=== PATIENT | male | born 1960 | race African-American/Black ===

== ENCOUNTER 2016-11-11 00:46 | Inpatient (IN) | payer MEDICAID ==
[~2016-11-11] VITALS: Ht 180.3 cm; Wt 98.0 kg
[~2016-11-11 00:46] MED LIST: AMLO5TAB2 PO; AMLO5TAB4 PO; ASPI-496 PO; ATOR40TA78 PO; CALC667C PO; CARV-39 PO; CARV3.1212 PO; CARV6.2512 PO; CINA30TA PO; CIPR250T27 PO; DARB60DI SC; DOCU-30 PO; ERGO2000 PO; FAMO-79 PO; FAMO20TA7 PO; FURO-92 PO; FURO80TA3 PO; GABA300C10 PO; HTN MEDS; HYDR-3138 PO; HYDR-3343 PO; HYDR50TA13 PO; LACT1CAP24 PO; LEVO500T33 PO; LISI-170 PO; LOSA50TA6 PO; OXYC5CAP4 PO; OXYC5TAB3 PO; PARI5VIA IVPush; SEVE400T PO; SEVE800T PO; TRAM-28 PO; VANC1VIA3 PO; VANC250C2 PO; [UNRECOGNIZED DRUG - REMARK]
[2016-11-11] MEDS ORDERED: SODIUM CHLORIDE 0.9% 1,000ML IVBOLUS ONE (01:30)
[2016-11-11 02:01] LABS: ASPARTATE AMINO TRANSFERASE 22 U/L (15-37); BLOOD UREA NITROGEN 63 mg/dL (7-18)
[2016-11-11] MEDS ORDERED: FUROSEMIDE 40 MG/4 ML IVPush ONE (04:30)
[2016-11-11] MEDS ORDERED: DEXTROSE 50%, 50ML SYRINGE IVPush ONE ×3 (04:30→13:00)
[2016-11-11] MEDS ORDERED: INSULIN REGULAR 100 UNITS/ML, 3ML VIAL IVPush ONE (04:30)
[2016-11-11] MEDS ORDERED: DEXTROSE 50%, 50ML SYRINGE ONE ×3 (04:45→12:53)
[2016-11-11] MEDS ORDERED: FUROSEMIDE 40 MG/4 ML ONE (04:45)
[2016-11-11] MEDS ORDERED: INSULIN SINGLE DOSE, ER SQ-INSULIN ONE ×2 (04:47→04:48)
[2016-11-11] MEDS ORDERED: hydrALAzine 20 MG/ML, 1ML ONE (06:18)
[2016-11-11] MEDS ORDERED: hydrALAzine 20 MG/ML, 1ML IV ONE (06:30)
[2016-11-11] MEDS ORDERED: MORPHINE SULFATE 4 MG/ML, 1ML ONE (06:51)
[2016-11-11] MEDS ORDERED: MORPHINE SULFATE 4 MG/ML, 1ML IVPush ONE (07:00)
[2016-11-11 08:01] VITALS: BP 143/77
[2016-11-11] MEDS: HYDROcodone/APAP 5/325 TABLET PO PRN (12:15)
[2016-11-11 12:42] VITALS: BP 162/98
[2016-11-11 12:45] VITALS: BP 162/98
[2016-11-11] MEDS ORDERED: PHARMACY INSTRUCTION MC PRN (14:30)
[2016-11-11] MEDS ORDERED: VANCOMYCIN PER PHARMACY MC PRN (14:30)
[2016-11-11] MEDS ORDERED: PHARMACOKINETIC MONITORING MC PRN (15:00)
[2016-11-11] MEDS ORDERED: PHARMACOKINETIC CONSULTATION MC ONE (15:00)
[2016-11-11] MEDS ORDERED: VANCOMYCIN 2,000 MG in SODIUM CHLORIDE 0.9% 500 ML IV ONE (16:00)
[2016-11-11] MEDS ORDERED: CALCIUM ACETATE 667 MG CAPSULE PO SCH (16:00)
[2016-11-11] MEDS: DEXTROSE 50%, 50ML SYRINGE IVPush PRN (16:10)
[2016-11-11] MEDS: VANCOMYCIN 50 MG/ML ORAL SUSP PO SCH ×3 (17:00→22:37)
[2016-11-11] MEDS: SEVELAMER 800MG TABLET PO SCH (17:20)
[2016-11-11] MEDS: LACTOBACILLUS CHEW TABLET PO SCH ×2 (17:20→20:50)
[2016-11-11] MEDS: PIPERACILLIN/TAZO/PMX 3.375GM 50 ML IV SCH ×2 (18:09→20:50)
[2016-11-11] MEDS ORDERED: DIPHENHYDRAMINE 50 MG/ML, 1ML IVPush ONE (18:30)
[2016-11-11 19:24] VITALS: BP 130/77
[2016-11-11] MEDS: DARBEPOETIN 60 MCG/ML SQ SCH (20:51)
[2016-11-12 01:08] VITALS: BP 141/88
[2016-11-12] MEDS: PIPERACILLIN/TAZO/PMX 3.375GM 50 ML IV SCH ×3 (02:46→14:00)
[2016-11-12 05:21] LABS: ASPARTATE AMINO TRANSFERASE 13 U/L (15-37); BLOOD UREA NITROGEN 40 mg/dL (7-18)
[2016-11-12 05:31] LABS: TOTAL IRON BINDING CAPACITY 180 mcg/dL (250-450)
[2016-11-12] MEDS: HYDROcodone/APAP 5/325 TABLET PO PRN ×2 (05:36→22:18)
[2016-11-12] MEDS: VANCOMYCIN 50 MG/ML ORAL SUSP PO SCH ×4 (05:36→20:42)
[2016-11-12 05:59] LABS: DIFF TOTAL CELLS COUNTED 100 CELL DIFF
[2016-11-12 06:02] LABS: VERIFY COUNTS? YES
[2016-11-12 06:03] LABS: ANISOCYTOSIS 1+
[2016-11-12 07:07] VITALS: BP 134/76
[2016-11-12] MEDS: SEVELAMER 800MG TABLET PO SCH ×3 (08:00→18:30)
[2016-11-12] MEDS: DEXTROSE 50%, 50ML SYRINGE IVPush PRN ×2 (08:30→12:05)
[2016-11-12] MEDS: LISINOPRIL 20 MG TABLET PO SCH (08:42)
[2016-11-12] MEDS: GABAPENTIN 300 MG CAPSULE PO SCH (08:42)
[2016-11-12] MEDS: LACTOBACILLUS CHEW TABLET PO SCH ×3 (08:42→20:42)
[2016-11-12] MEDS: CARVEDILOL 25 MG TABLET PO SCH ×2 (08:42→09:00)
[2016-11-12] MEDS: AMLODIPINE 5 MG TABLET PO SCH (08:42)
[2016-11-12 13:48] VITALS: BP 118/68
[2016-11-12] MEDS: CINACALCET 30 MG TABLET PO SCH (14:00)
[2016-11-12 18:20] VITALS: BP 123/75
[2016-11-12] MEDS: PIPERACILLIN/TAZO/PMX 2.25GM 50 ML IVPB SCH (22:18)
[2016-11-13 01:02] VITALS: BP 103/54
[2016-11-13] MEDS: VANCOMYCIN 50 MG/ML ORAL SUSP PO SCH ×4 (06:00→20:20)
[2016-11-13] MEDS: PIPERACILLIN/TAZO/PMX 2.25GM 50 ML IVPB SCH ×2 (06:07→16:00)
[2016-11-13 06:17] LABS: BLOOD UREA NITROGEN 34 mg/dL (7-18)
[2016-11-13 07:00] VITALS: BP 138/77
[2016-11-13] MEDS: SEVELAMER 800MG TABLET PO SCH ×3 (08:00→18:00)
[2016-11-13] MEDS: CINACALCET 30 MG TABLET PO SCH (09:00)
[2016-11-13] MEDS: CARVEDILOL 25 MG TABLET PO SCH (09:00)
[2016-11-13] MEDS: LISINOPRIL 20 MG TABLET PO SCH (09:00)
[2016-11-13] MEDS: GABAPENTIN 300 MG CAPSULE PO SCH (09:00)
[2016-11-13] MEDS: AMLODIPINE 5 MG TABLET PO SCH (09:00)
[2016-11-13] MEDS: LACTOBACILLUS CHEW TABLET PO SCH ×3 (09:00→20:20)
[2016-11-13 12:53] VITALS: BP 153/92
[2016-11-13] MEDS ORDERED: VANCOMYCIN 1,500 MG in SODIUM CHLORIDE 0.9% 250 ML IV ONE (13:00)
[2016-11-13 18:36] VITALS: BP 130/77
[2016-11-13] MEDS: HYDROcodone/APAP 5/325 TABLET PO PRN (23:21)
[2016-11-14] MEDS: PIPERACILLIN/TAZO/PMX 2.25GM 50 ML IVPB SCH ×3 (00:20→12:00)
[2016-11-14 00:59] VITALS: BP 136/81
[2016-11-14] MEDS: VANCOMYCIN 50 MG/ML ORAL SUSP PO SCH ×4 (05:01→21:16)
[2016-11-14 05:40] LABS: BLOOD UREA NITROGEN 46 mg/dL (7-18)
[2016-11-14 07:02] VITALS: BP 134/79
[2016-11-14] MEDS: SEVELAMER 800MG TABLET PO SCH ×3 (08:00→16:33)
[2016-11-14] MEDS: GABAPENTIN 300 MG CAPSULE PO SCH (08:04)
[2016-11-14] MEDS: LACTOBACILLUS CHEW TABLET PO SCH ×3 (08:04→21:16)
[2016-11-14] MEDS: CARVEDILOL 25 MG TABLET PO SCH (12:33)
[2016-11-14] MEDS: AMLODIPINE 5 MG TABLET PO SCH (12:34)
[2016-11-14] MEDS: CINACALCET 30 MG TABLET PO SCH (12:34)
[2016-11-14] MEDS: LISINOPRIL 20 MG TABLET PO SCH (12:34)
[2016-11-14 13:03] VITALS: BP 146/79
[2016-11-14] MEDS ORDERED: PIPERACILLIN/TAZO 0.75 GM in SODIUM CHLORIDE 0.9% 50 ML IV SCH (16:00)
[2016-11-14 20:00] VITALS: BP 111/71
[2016-11-14] MEDS: CHOLESTYRAMINE LIGHT 4GM PACKET PO SCH (21:16)
[2016-11-14] MEDS: HYDROcodone/APAP 5/325 TABLET PO PRN (21:17)
[2016-11-15] MEDS: PIPERACILLIN/TAZO/PMX 2.25GM 50 ML IVPB SCH ×2 (00:09→12:00)
[2016-11-15 02:00] VITALS: BP 119/71
[2016-11-15] MEDS: VANCOMYCIN 50 MG/ML ORAL SUSP PO SCH ×4 (04:12→21:21)
[2016-11-15 06:53] VITALS: BP 130/78
[2016-11-15] MEDS: SEVELAMER 800MG TABLET PO SCH ×3 (08:00→16:26)
[2016-11-15] MEDS: CARVEDILOL 25 MG TABLET PO SCH (09:00)
[2016-11-15] MEDS: CHOLESTYRAMINE LIGHT 4GM PACKET PO SCH ×2 (09:00→21:21)
[2016-11-15] MEDS: GABAPENTIN 300 MG CAPSULE PO SCH (09:00)
[2016-11-15] MEDS: LACTOBACILLUS CHEW TABLET PO SCH ×3 (09:00→21:21)
[2016-11-15] MEDS: AMLODIPINE 5 MG TABLET PO SCH (09:00)
[2016-11-15] MEDS: CINACALCET 30 MG TABLET PO SCH (09:00)
[2016-11-15] MEDS: LISINOPRIL 20 MG TABLET PO SCH (09:00)
[2016-11-15] MEDS ORDERED: FENTANYL PF 250 MCG/5ML ONE (10:02)
[2016-11-15 11:11] LABS: ASPARTATE AMINO TRANSFERASE 12 U/L (15-37); BLOOD UREA NITROGEN 37 mg/dL (7-18)
[2016-11-15] MEDS ORDERED: SUCCINYLCHOLINE 20 MG/ML, 10ML ONE (11:25)
[2016-11-15] MEDS ORDERED: HEPARIN 1,000 UNITS/ML, 30ML ONE (11:27)
[2016-11-15] MEDS ORDERED: THROMBIN 5,000 UNIT VIAL TP ONE (11:27)
[2016-11-15] MEDS ORDERED: PROTAMINE SULFATE 10 MG/ML, 5ML ONE (11:27)
[2016-11-15] MEDS ORDERED: HEPARIN 5,000 UNITS/ML, 1ML ONE (11:27)
[2016-11-15] MEDS ORDERED: BUPIVACAINE/PF 0.5% ONE (11:30)
[2016-11-15] MEDS ORDERED: PROPOFOL 10 MG/ML, 20ML ONE (11:34)
[2016-11-15] MEDS ORDERED: ONDANSETRON 2MG/ML, 2ML ONE (11:34)
[2016-11-15] MEDS ORDERED: ONDANSETRON 2MG/ML, 2ML IVPush PRN (12:00)
[2016-11-15] MEDS ORDERED: hydrALAzine 20 MG/ML, 1ML IV PRN (12:00)
[2016-11-15] MEDS ORDERED: OXYcodone 5 MG/5 ML ORAL.SOL UDC PO PRN (12:00)
[2016-11-15] MEDS ORDERED: LABETALOL 5MG/ML, 20ML IV PRN (12:00)
[2016-11-15] MEDS ORDERED: HYDROmorphone 1 MG/ML, 1ML IV PRN (12:00)
[2016-11-15] MEDS ORDERED: FENTANYL PF 100 MCG/2ML ONE (13:01)
[2016-11-15] MEDS ORDERED: OXYcodone 5 MG/5 ML ORAL.SOL UDC ONE (13:02)
[2016-11-15] MEDS: FENTANYL PF 100 MCG/2ML IV PRN ×2 (13:05→13:30)
[2016-11-15 14:00] VITALS: BP 145/77
[2016-11-15] MEDS: HYDROcodone/APAP 5/325 TABLET PO PRN ×2 (16:26→23:21)
[2016-11-15 20:00] VITALS: BP 122/71
[2016-11-16] MEDS: PIPERACILLIN/TAZO/PMX 2.25GM 50 ML IVPB SCH ×2 (00:21→12:49)
[2016-11-16 02:00] VITALS: BP 144/81
[2016-11-16 06:20] LABS: BLOOD UREA NITROGEN 42 mg/dL (7-18)
[2016-11-16] MEDS: VANCOMYCIN 50 MG/ML ORAL SUSP PO SCH ×4 (06:31→20:28)
[2016-11-16] MEDS: HYDROcodone/APAP 5/325 TABLET PO PRN ×3 (06:32→20:28)
[2016-11-16 07:29] VITALS: BP 138/82
[2016-11-16] MEDS: SEVELAMER 800MG TABLET PO SCH ×3 (08:00→17:07)
[2016-11-16] MEDS: LACTOBACILLUS CHEW TABLET PO SCH ×3 (09:00→20:28)
[2016-11-16] MEDS: CINACALCET 30 MG TABLET PO SCH (09:00)
[2016-11-16] MEDS: CHOLESTYRAMINE LIGHT 4GM PACKET PO SCH ×2 (09:00→20:28)
[2016-11-16] MEDS: AMLODIPINE 5 MG TABLET PO SCH (12:48)
[2016-11-16] MEDS: LISINOPRIL 20 MG TABLET PO SCH (12:48)
[2016-11-16] MEDS: CARVEDILOL 25 MG TABLET PO SCH (12:48)
[2016-11-16] MEDS: GABAPENTIN 300 MG CAPSULE PO SCH (12:49)
[2016-11-16 13:19] VITALS: BP 130/78
[2016-11-16] MEDS: DOXYCYCLINE 100 MG in DEXTROSE 5% 250 ML IV SCH (17:07)
[2016-11-16] MEDS: HEPARIN 5,000 UNITS/ML, 1ML SQ SCH (17:08)
[2016-11-16 20:00] VITALS: BP 92/54
[2016-11-17] MEDS: HEPARIN 5,000 UNITS/ML, 1ML SQ SCH ×3 (00:32→18:25)
[2016-11-17 02:00] VITALS: BP 117/65
[2016-11-17] MEDS: DOXYCYCLINE 100 MG in DEXTROSE 5% 250 ML IV SCH ×2 (02:53→15:55)
[2016-11-17] MEDS: HYDROcodone/APAP 5/325 TABLET PO PRN ×3 (02:54→18:24)
[2016-11-17] MEDS: VANCOMYCIN 50 MG/ML ORAL SUSP PO SCH ×4 (06:15→20:47)
[2016-11-17 06:56] VITALS: BP 116/64
[2016-11-17 08:41] LABS: BLOOD UREA NITROGEN 28 mg/dL (7-18)
[2016-11-17 08:42] LABS: ASPARTATE AMINO TRANSFERASE 12 U/L (15-37)
[2016-11-17] MEDS: CARVEDILOL 25 MG TABLET PO SCH (10:30)
[2016-11-17] MEDS: SEVELAMER 800MG TABLET PO SCH ×3 (10:30→18:24)
[2016-11-17] MEDS: LACTOBACILLUS CHEW TABLET PO SCH ×3 (10:30→20:47)
[2016-11-17] MEDS: AMLODIPINE 5 MG TABLET PO SCH (10:31)
[2016-11-17] MEDS: GABAPENTIN 300 MG CAPSULE PO SCH (10:31)
[2016-11-17] MEDS: CINACALCET 30 MG TABLET PO SCH (10:31)
[2016-11-17] MEDS: LISINOPRIL 20 MG TABLET PO SCH (10:31)
[2016-11-17] MEDS: CHOLESTYRAMINE LIGHT 4GM PACKET PO SCH ×2 (11:00→20:47)
[2016-11-17 14:48] VITALS: BP 99/61
[2016-11-17 18:57] VITALS: BP 105/63
[2016-11-18] MEDS: HEPARIN 5,000 UNITS/ML, 1ML SQ SCH ×4 (00:26→23:35)
[2016-11-18 01:37] VITALS: BP 116/70
[2016-11-18] MEDS: DOXYCYCLINE 100 MG in DEXTROSE 5% 250 ML IV SCH ×2 (03:47→15:59)
[2016-11-18] MEDS: VANCOMYCIN 50 MG/ML ORAL SUSP PO SCH ×4 (06:14→21:19)
[2016-11-18 07:30] VITALS: BP 114/68
[2016-11-18] MEDS: CHOLESTYRAMINE LIGHT 4GM PACKET PO SCH ×2 (09:59→21:19)
[2016-11-18] MEDS: CINACALCET 30 MG TABLET PO SCH (09:59)
[2016-11-18] MEDS: GABAPENTIN 300 MG CAPSULE PO SCH (09:59)
[2016-11-18] MEDS: LISINOPRIL 20 MG TABLET PO SCH (09:59)
[2016-11-18] MEDS: AMLODIPINE 5 MG TABLET PO SCH (09:59)
[2016-11-18] MEDS: LACTOBACILLUS CHEW TABLET PO SCH ×3 (10:00→21:19)
[2016-11-18] MEDS: SEVELAMER 800MG TABLET PO SCH ×3 (10:00→15:59)
[2016-11-18] MEDS: CARVEDILOL 25 MG TABLET PO SCH (10:00)
[2016-11-18] MEDS: HYDROcodone/APAP 5/325 TABLET PO PRN ×3 (10:29→23:33)
[2016-11-18 13:59] VITALS: BP 104/62
[2016-11-18 18:35] VITALS: BP 82/5
[2016-11-18] MEDS: DARBEPOETIN 60 MCG/ML SQ SCH (21:20)
[2016-11-19 01:37] VITALS: BP 100/60
[2016-11-19] MEDS: DOXYCYCLINE 100 MG in DEXTROSE 5% 250 ML IV SCH (03:20)
[2016-11-19 05:30] LABS: BLOOD UREA NITROGEN 62 mg/dL (7-18)
[2016-11-19 05:34] LABS: ASPARTATE AMINO TRANSFERASE 9 U/L (15-37)
[2016-11-19] MEDS: VANCOMYCIN 50 MG/ML ORAL SUSP PO SCH ×3 (06:16→20:16)
[2016-11-19] MEDS: HYDROcodone/APAP 5/325 TABLET PO PRN ×2 (06:16→20:16)
[2016-11-19 06:44] VITALS: BP 108/64
[2016-11-19] MEDS: SEVELAMER 800MG TABLET PO SCH ×3 (08:11→18:16)
[2016-11-19] MEDS: CHOLESTYRAMINE LIGHT 4GM PACKET PO SCH ×2 (08:11→21:45)
[2016-11-19] MEDS: GABAPENTIN 300 MG CAPSULE PO SCH (08:11)
[2016-11-19] MEDS: CINACALCET 30 MG TABLET PO SCH (08:12)
[2016-11-19] MEDS: HEPARIN 5,000 UNITS/ML, 1ML SQ SCH ×3 (08:12→23:34)
[2016-11-19] MEDS: LACTOBACILLUS CHEW TABLET PO SCH ×3 (08:12→20:15)
[2016-11-19] MEDS: CARVEDILOL 25 MG TABLET PO SCH (09:00)
[2016-11-19] MEDS: LISINOPRIL 20 MG TABLET PO SCH (09:00)
[2016-11-19] MEDS: AMLODIPINE 5 MG TABLET PO SCH (09:00)
[2016-11-19 13:22] VITALS: BP 107/61
[2016-11-19 19:55] VITALS: BP 128/78
[2016-11-19] MEDS: DOXYCYCLINE 100MG TABLET PO SCH (20:15)
[2016-11-20 01:21] VITALS: BP 104/57
[2016-11-20] MEDS: HYDROcodone/APAP 5/325 TABLET PO PRN (02:14)
[2016-11-20] MEDS: VANCOMYCIN 50 MG/ML ORAL SUSP PO SCH ×3 (05:33→15:23)
[2016-11-20 06:44] VITALS: BP 107/62
[2016-11-20] MEDS: LACTOBACILLUS CHEW TABLET PO SCH ×2 (09:24→15:23)
[2016-11-20] MEDS: SEVELAMER 800MG TABLET PO SCH ×2 (09:24→12:09)
[2016-11-20] MEDS: HEPARIN 5,000 UNITS/ML, 1ML SQ SCH ×2 (09:24→15:23)
[2016-11-20] MEDS: CARVEDILOL 25 MG TABLET PO SCH (09:24)
[2016-11-20] MEDS: GABAPENTIN 300 MG CAPSULE PO SCH (09:24)
[2016-11-20] MEDS: AMLODIPINE 5 MG TABLET PO SCH (09:25)
[2016-11-20] MEDS: LISINOPRIL 20 MG TABLET PO SCH (09:26)
[2016-11-20] MEDS: CHOLESTYRAMINE LIGHT 4GM PACKET PO SCH (09:26)
[2016-11-20] MEDS: DOXYCYCLINE 100MG TABLET PO SCH (09:26)
[2016-11-20] MEDS: CINACALCET 30 MG TABLET PO SCH (09:26)
[2016-11-20] MEDS ORDERED: DOXY100T PO (10:38)
[2016-11-20] MEDS ORDERED: VANC250C2 PO (10:38)
[2016-11-20 14:12] VITALS: BP 104/68
== END 2016-11-20 16:30 | disposition home or self-care (01) | DRG 622 ==
LOC: ED 01:03 → EDIP 06:16 → 4WST 07:07
PROVIDERS: ADMIT Internal Medicine; ATTEND Internal Medicine
PROC: 05SA0ZZ Reposition Left Brachial Vein, Open Approach (ICD-10-PCS; principal; 2016-11-15 11:00)
PROC: 0HBNXZZ Excision of Left Foot Skin, External Approach (ICD-10-PCS; 2016-11-15 11:00)
PROC: 5A1D60Z (ICD-10-PCS; 2016-11-19)
DX: E87.5 Hyperkalemia (principal); N18.6 End stage renal disease; I13.2 Hypertensive heart and chronic kidney disease with heart failure and with stage 5 chronic kidney disease, or end stage renal disease; I50.42 Chronic combined systolic (congestive) and diastolic (congestive) heart failure; L02.612 Cutaneous abscess of left foot; L03.116 Cellulitis of left lower limb; Z99.2 Dependence on renal dialysis; E11.22 Type 2 diabetes mellitus with diabetic chronic kidney disease; I27.2 Other secondary pulmonary hypertension; E11.649 Type 2 diabetes mellitus with hypoglycemia without coma; E78.5 Hyperlipidemia, unspecified; H54.8 Legal blindness, as defined in USA; Z87.442 Personal history of urinary calculi; N20.0 Calculus of kidney; D63.1 Anemia in chronic kidney disease; G89.4 Chronic pain syndrome; I25.10 Atherosclerotic heart disease of native coronary artery without angina pectoris; Z59.0 Homelessness; Z91.19 Patient's noncompliance with other medical treatment and regimen; E87.1 Hypo-osmolality and hyponatremia
CPT/HCPCS: 36415; 71010; 74176; 76700; 80048; 80053; 80202; 82306; 82728; 82962; 83036; 83540; 83550; 83690; 83735; 83970; 84100; 84145; 84550; 85025; 87040; 87324; 89055; 93005; 93922; 96361; 96374; 96375; 96376; J0881; J1644; J1940; J2405; J2543; J2704; J2720; J3010; J3370; J3490; J7060; J0330; J0360; J1200; J7030; J7040; J7050

== ENCOUNTER 2016-11-23 19:57 | Emergency (ER) | payer MEDICAID ==
[~2016-11-23] VITALS: Ht 180.3 cm; Wt 93.8 kg
[~2016-11-23 19:57] MED LIST changes: +DOXY100T PO
[2016-11-23 21:26] LABS: ASPARTATE AMINO TRANSFERASE 20 U/L (15-37); BLOOD UREA NITROGEN 24 mg/dL (7-18)
[2016-11-23 23:51] VITALS: BP 149/94
== END 2016-11-23 23:53 | disposition home or self-care (01) ==
LOC: ED 22:15
DX: K60.2 Anal fissure, unspecified (principal); I12.0 Hypertensive chronic kidney disease with stage 5 chronic kidney disease or end stage renal disease; E11.22 Type 2 diabetes mellitus with diabetic chronic kidney disease; N18.6 End stage renal disease; K72.90 Hepatic failure, unspecified without coma; I11.0 Hypertensive heart disease with heart failure; Z99.2 Dependence on renal dialysis
CPT/HCPCS: 36415; 74022; 74176; 80053; 85025; 93005

== ENCOUNTER 2017-01-27 00:13 | Inpatient (IN) | payer MEDICAID ==
[~2017-01-27] VITALS: Ht 180.3 cm; Wt 102.5 kg
[2017-01-27 01:52] LABS: BLOOD UREA NITROGEN 107 mg/dL (7-18)
[2017-01-27] MEDS: HEPARIN 5,000 UNITS/ML, 1ML SQ SCH ×3 (04:30→20:35)
[2017-01-27] MEDS ORDERED: ACETAMINOPHEN 325 MG TABLET PO PRN (04:30)
[2017-01-27] MEDS ORDERED: ONDANSETRON 2MG/ML, 2ML IVPush PRN (04:30)
[2017-01-27] MEDS ORDERED: HYDROcodone/APAP 5/325 TABLET PO PRN (04:30)
[2017-01-27] MEDS ORDERED: POLYETHYLENE GLYCOL 17 GM PACKET PO PRN (04:30)
[2017-01-27] MEDS ORDERED: DOCUSATE 100 MG CAPSULE PO PRN (04:30)
[2017-01-27 06:19] VITALS: BP 159/93
[2017-01-27 07:19] VITALS: BP 149/86
[2017-01-27] MEDS: SEVELAMER 2.4 GM POWD.PACK PO SCH ×3 (09:29→18:17)
[2017-01-27] MEDS: CARVEDILOL 25 MG TABLET PO SCH (09:31)
[2017-01-27] MEDS: SENNA/DOCUSATE TABLET PO SCH (09:31)
[2017-01-27] MEDS: GABAPENTIN 300 MG CAPSULE PO SCH (09:31)
[2017-01-27] MEDS: LISINOPRIL 20 MG TABLET PO SCH (09:31)
[2017-01-27] MEDS: AMLODIPINE 5 MG TABLET PO SCH (09:31)
[2017-01-27] MEDS: LACTOBACILLUS CHEW TABLET PO SCH ×3 (09:31→20:36)
[2017-01-27] MEDS: CALCIUM ACETATE 667 MG CAPSULE PO SCH ×3 (09:31→20:36)
[2017-01-27] MEDS: SODIUM CHLORIDE FLUSH 10ML SYR IVF SCH ×2 (09:33→20:36)
[2017-01-27 15:30] VITALS: BP 103/58
[2017-01-27 18:00] VITALS: BP 122/70
[2017-01-27] MEDS: ATORVASTATIN 40 MG TABLET PO SCH (20:36)
[2017-01-28 02:01] VITALS: BP 127/69
[2017-01-28] MEDS: HEPARIN 5,000 UNITS/ML, 1ML SQ SCH ×3 (04:41→21:36)
[2017-01-28 06:24] LABS: BLOOD UREA NITROGEN 65 mg/dL (7-18)
[2017-01-28 07:50] VITALS: BP 112/62
[2017-01-28] MEDS: LISINOPRIL 20 MG TABLET PO SCH (09:00)
[2017-01-28] MEDS ORDERED: CINACALCET 30 MG TABLET PO SCH (09:00)
[2017-01-28] MEDS: GABAPENTIN 300 MG CAPSULE PO SCH (09:00)
[2017-01-28] MEDS: AMLODIPINE 5 MG TABLET PO SCH (09:00)
[2017-01-28] MEDS: CARVEDILOL 25 MG TABLET PO SCH (09:00)
[2017-01-28] MEDS: SENNA/DOCUSATE TABLET PO SCH (09:00)
[2017-01-28] MEDS: SODIUM CHLORIDE FLUSH 10ML SYR IVF SCH ×2 (09:01→21:37)
[2017-01-28] MEDS: CALCIUM ACETATE 667 MG CAPSULE PO SCH ×3 (09:02→21:37)
[2017-01-28] MEDS: LACTOBACILLUS CHEW TABLET PO SCH ×3 (09:02→21:37)
[2017-01-28] MEDS: SEVELAMER 2.4 GM POWD.PACK PO SCH ×3 (09:04→18:25)
[2017-01-28 13:54] VITALS: BP 129/71
[2017-01-28 20:00] VITALS: BP 132/65
[2017-01-28] MEDS: ATORVASTATIN 40 MG TABLET PO SCH (21:37)
[2017-01-29 02:00] VITALS: BP 134/66
[2017-01-29] MEDS: HEPARIN 5,000 UNITS/ML, 1ML SQ SCH ×2 (05:02→12:47)
[2017-01-29 05:29] LABS: BLOOD UREA NITROGEN 50 mg/dL (7-18)
[2017-01-29 07:45] VITALS: BP 127/67
[2017-01-29] MEDS: SEVELAMER 2.4 GM POWD.PACK PO SCH ×2 (08:00→12:42)
[2017-01-29] MEDS: SENNA/DOCUSATE TABLET PO SCH (09:00)
[2017-01-29] MEDS: SODIUM CHLORIDE FLUSH 10ML SYR IVF SCH (09:00)
[2017-01-29] MEDS: CALCIUM ACETATE 667 MG CAPSULE PO SCH (09:00)
[2017-01-29] MEDS: CARVEDILOL 25 MG TABLET PO SCH (09:48)
[2017-01-29] MEDS: GABAPENTIN 300 MG CAPSULE PO SCH (09:49)
[2017-01-29] MEDS: AMLODIPINE 5 MG TABLET PO SCH (09:49)
[2017-01-29] MEDS: LISINOPRIL 20 MG TABLET PO SCH (09:49)
[2017-01-29] MEDS: LACTOBACILLUS CHEW TABLET PO SCH (09:49)
== END 2017-01-29 16:00 | disposition home or self-care (01) | DRG 640 ==
LOC: ED 00:23 → EDIP 03:14 → 4WST 05:39 → DCLOUNGE 01-29 15:18
PROVIDERS: ADMIT Family Medicine; ATTEND Internal Medicine
PROC: 5A1D60Z (ICD-10-PCS; principal; 2017-01-27)
DX: E87.70 Fluid overload, unspecified (principal); N18.6 End stage renal disease; I13.2 Hypertensive heart and chronic kidney disease with heart failure and with stage 5 chronic kidney disease, or end stage renal disease; E11.22 Type 2 diabetes mellitus with diabetic chronic kidney disease; E11.21 Type 2 diabetes mellitus with diabetic nephropathy; I50.9 Heart failure, unspecified; E11.40 Type 2 diabetes mellitus with diabetic neuropathy, unspecified; D63.1 Anemia in chronic kidney disease; G89.4 Chronic pain syndrome; I25.10 Atherosclerotic heart disease of native coronary artery without angina pectoris; S91.309A Unspecified open wound, unspecified foot, initial encounter; I27.2 Other secondary pulmonary hypertension; Z59.0 Homelessness; Z99.2 Dependence on renal dialysis; Z91.19 Patient's noncompliance with other medical treatment and regimen; Z88.6 Allergy status to analgesic agent; Z83.3 Family history of diabetes mellitus; Z82.49 Family history of ischemic heart disease and other diseases of the circulatory system; Z87.19 Personal history of other diseases of the digestive system
CPT/HCPCS: 36415; 71010; 80048; 82040; 82962; 83735; 84100; 85025; 93005; 99285; J1644

== ENCOUNTER 2017-03-20 01:25 | Emergency (ER) | payer MEDICAID ==
[~2017-03-20 01:25] MED LIST changes: -CINA30TA PO; +CINA30TA2 PO; +DOCU-131 PO; -DOCU-30 PO; -HYDR-3138 PO; +HYDR-3237 PO; -LEVO500T33 PO; +LEVO500T47 PO; +OXYC5CAP2 PO; -OXYC5CAP4 PO; -SEVE800T PO; +SEVE800T7 PO; -TRAM-28 PO; +TRAM-47 PO
[2017-03-20] MEDS ORDERED: MORPHINE SULFATE 4 MG/ML, 1ML ONE (02:10)
[2017-03-20] MEDS ORDERED: ONDANSETRON 2MG/ML, 2ML ONE (02:11)
[2017-03-20] MEDS ORDERED: ASPIRIN 81 MG TABLET CHEW ONE (02:11)
[2017-03-20 11:53] LABS: ASPARTATE AMINO TRANSFERASE 7 U/L (15-37); BLOOD UREA NITROGEN 49 mg/dL (7-18); IS PT STATUS REG ER OR PRE ER? YES
[2017-03-20 13:15] LABS: HEMOGLOBIN 10.5 g/dL (13.7-18.0); WHITE BLOOD COUNT 7.5 x10^3/uL (3.4-10)
== END 2017-03-20 13:31 | disposition home or self-care (01) ==
LOC: ED 02:10
DX: R10.30 Lower abdominal pain, unspecified (principal); R19.7 Diarrhea, unspecified; R07.2 Precordial pain; E11.22 Type 2 diabetes mellitus with diabetic chronic kidney disease; I12.0 Hypertensive chronic kidney disease with stage 5 chronic kidney disease or end stage renal disease; N18.6 End stage renal disease; Z99.2 Dependence on renal dialysis
CPT/HCPCS: 36415; 71010; 80053; 83690; 84484; 85025; 93005; 99285

== ENCOUNTER 2017-03-24 21:38 | Emergency (ER) | payer MEDICAID ==
[~2017-03-24] VITALS: Ht 180.3 cm; Wt 100.0 kg
[2017-03-24 23:08] LABS: HEMATOCRIT 26.7 % (39.2-51.8); HEMOGLOBIN 8.8 g/dL (13.7-18.0); WHITE BLOOD COUNT 4.1 x10^3/uL (3.4-10)
[2017-03-24 23:16] LABS: ASPARTATE AMINO TRANSFERASE 6 U/L (15-37); BLOOD UREA NITROGEN 68 mg/dL (7-18)
[2017-03-25 00:29] VITALS: BP 141/78
== END 2017-03-25 00:31 | disposition home or self-care (01) ==
LOC: ED 22:31
DX: E11.22 Type 2 diabetes mellitus with diabetic chronic kidney disease (principal); I13.2 Hypertensive heart and chronic kidney disease with heart failure and with stage 5 chronic kidney disease, or end stage renal disease; N18.6 End stage renal disease; I50.30 Unspecified diastolic (congestive) heart failure; K72.90 Hepatic failure, unspecified without coma; Z99.2 Dependence on renal dialysis
CPT/HCPCS: 36415; 71010; 80053; 85025; 93005; 99285

== ENCOUNTER 2017-04-05 14:24 | Inpatient (IN) | payer MEDICAID ==
[~2017-04-05] VITALS: Ht 180.3 cm; Wt 110.7 kg
[2017-04-05 15:39] LABS: HEMATOCRIT 30.3 % (39.2-51.8); HEMOGLOBIN 10.1 g/dL (13.7-18.0); WHITE BLOOD COUNT 5.2 x10^3/uL (3.4-10)
[2017-04-05 15:57] LABS: ASPARTATE AMINO TRANSFERASE 9 U/L (15-37); BLOOD UREA NITROGEN 42 mg/dL (7-18)
[2017-04-05] MEDS ORDERED: POLYETHYLENE GLYCOL 17 GM PACKET PO PRN (18:30)
[2017-04-05] MEDS ORDERED: SEVELAMER 800MG TABLET PO SCH (18:30)
[2017-04-05] MEDS ORDERED: ONDANSETRON ODT 4 MG PO PRN (18:30)
[2017-04-05] MEDS ORDERED: ATORVASTATIN 40 MG TABLET PO SCH (21:00)
[2017-04-05 21:27] VITALS: BP 139/70
[2017-04-05] MEDS: CALCIUM ACETATE 667 MG CAPSULE PO SCH (22:14)
[2017-04-05] MEDS: HEPARIN 5,000 UNITS/ML, 1ML SQ SCH (22:14)
[2017-04-05] MEDS: HYDROcodone/APAP 5/325 TABLET PO SCH (22:15)
[2017-04-05] MEDS: LACTOBACILLUS CHEW TABLET PO SCH (22:15)
[2017-04-05] MEDS: BENZONATATE 100 MG CAPSULE PO SCH (22:24)
[2017-04-05] MEDS: SEVELAMER 2.4 GM POWD.PACK PO SCH (23:48)
[2017-04-06 02:33] VITALS: BP 129/75
[2017-04-06] MEDS: HYDROcodone/APAP 5/325 TABLET PO SCH (05:02)
[2017-04-06 05:15] LABS: HEMATOCRIT 29.8 % (39.2-51.8); HEMOGLOBIN 9.9 g/dL (13.7-18.0); WHITE BLOOD COUNT 5.3 x10^3/uL (3.4-10)
[2017-04-06 05:22] LABS: BLOOD UREA NITROGEN 49 mg/dL (7-18)
[2017-04-06 05:27] LABS: ASPARTATE AMINO TRANSFERASE 8 U/L (15-37)
[2017-04-06] MEDS: HEPARIN 5,000 UNITS/ML, 1ML SQ SCH (05:37)
[2017-04-06] MEDS: SEVELAMER 2.4 GM POWD.PACK PO SCH ×2 (08:00→12:00)
[2017-04-06 08:15] VITALS: BP 133/75
[2017-04-06] MEDS ORDERED: CARVEDILOL 25 MG TABLET PO SCH (09:00)
[2017-04-06] MEDS ORDERED: LISINOPRIL 20 MG TABLET PO SCH (09:00)
[2017-04-06] MEDS: CALCIUM ACETATE 667 MG CAPSULE PO SCH (09:00)
[2017-04-06] MEDS ORDERED: AMLODIPINE 5 MG TABLET PO SCH (09:00)
[2017-04-06] MEDS: LACTOBACILLUS CHEW TABLET PO SCH (09:00)
[2017-04-06] MEDS: BENZONATATE 100 MG CAPSULE PO SCH (09:00)
[2017-04-08] MEDS ORDERED: CINACALCET 30 MG TABLET PO SCH (09:00)
== END 2017-04-06 16:07 | disposition home or self-care (01) | DRG 291 ==
LOC: ED 15:51 → EDIP 17:45 → 4WST 20:07
PROVIDERS: ADMIT Hospitalist; ATTEND Internal Medicine
PROC: 5A1D00Z (ICD-10-PCS; principal; 2017-04-05)
DX: I13.2 Hypertensive heart and chronic kidney disease with heart failure and with stage 5 chronic kidney disease, or end stage renal disease (principal); N18.6 End stage renal disease; E11.22 Type 2 diabetes mellitus with diabetic chronic kidney disease; N25.81 Secondary hyperparathyroidism of renal origin; I27.2 Other secondary pulmonary hypertension; N25.0 Renal osteodystrophy; D63.1 Anemia in chronic kidney disease; G89.4 Chronic pain syndrome; H54.8 Legal blindness, as defined in USA; I25.10 Atherosclerotic heart disease of native coronary artery without angina pectoris; I50.9 Heart failure, unspecified; Z59.0 Homelessness; Z91.19 Patient's noncompliance with other medical treatment and regimen; Z99.2 Dependence on renal dialysis
CPT/HCPCS: 36415; 71010; 80053; 82962; 85025; 87324; 93005; J1644

== ENCOUNTER 2017-05-19 19:13 | Emergency (ER) | payer MEDICAID ==
[~2017-05-19] VITALS: Ht 180.3 cm; Wt 95.0 kg
[2017-05-19 21:52] VITALS: BP 164/89
== END 2017-05-19 21:55 | disposition home or self-care (01) ==
LOC: ED 20:11
DX: R19.7 Diarrhea, unspecified (principal); Z59.0 Homelessness; Z99.2 Dependence on renal dialysis; N18.6 End stage renal disease
CPT/HCPCS: 87324; 89055; 99284